=== PATIENT | female | born 1955 | race Caucasian/White ===

== ENCOUNTER → 2017-12-15 | Outpatient (CLI) | payer OTHER ==
[~2017-12-15] MED LIST: ADULT LOW DOSE81 MG PO; BYSTOLIC 5 MG5 M1 PO; ESTRACE0.5 MG PO; FISH OIL 1,0001 EAC5 PO; HYDROCODON-ACE1 EAC5 PO; IBUPROFEN 200200 M1 PO; IBUPROFEN 800800 M1 PO; JINTELI 1 MG-51 EACH PO; LAXATIVE5 M1 PO; LEVOXYL137 MCG PO; LEVOXYL88 MCG PO; LISINOPRIL20 MG PO; MULTIVITAMINS1 EAC7; NEURONTIN 300300 M1 PO; OXYCODONE HCL15 MG; PERCOCET PO; TRAMADOL 50 MG50 MG PO; TYLENOL EX-STR500 M2 PO; ULTRAM 50 MG PO; VYTORIN 10-401 EACH PO; ZANAFLEX4 M1 PO
== END ==
LOC: M.RAD 07:40
DX: Z12.31 Encounter for screening mammogram for malignant neoplasm of breast (principal)

== ENCOUNTER → 2018-12-29 | Outpatient (CLI) | payer OTHER | LOC: M.RAD 09:25 | DX: Z12.31 Encounter for screening mammogram for malignant neoplasm of breast (principal) ==

== ENCOUNTER → 2020-01-10 | Outpatient (CLI) | payer OTHER | LOC: M.RAD 10:00 | DX: Z12.31 Encounter for screening mammogram for malignant neoplasm of breast (principal) ==

== ENCOUNTER → 2021-01-20 | Outpatient (CLI) | payer OTHER | LOC: M.RAD 09:55 | DX: Z12.31 Encounter for screening mammogram for malignant neoplasm of breast (principal) ==